=== PATIENT | female | born 1975 | race Caucasian/White ===

== ENCOUNTER → 2018-03-04 | Outpatient (CLI) | payer BC | LOC: MC.RAD 10:40 | DX: Z12.31 Encounter for screening mammogram for malignant neoplasm of breast (principal) ==

== ENCOUNTER 2020-06-09 03:48 | Emergency (ER) | payer BC ==
[~2020-06-09] VITALS: Ht 160 cm; Wt 104.5 kg
[2020-06-09 03:59] VITALS: BP 137/83; TEMP 97.6
[2020-06-09 04:45] LABS: BASO # 0.1 (0.0-0.2); BASO % 0.8 % (0.0-2.0); EOS # 0.1 (0.0-0.7); EOS % 0.8 % (0-4.0); GRAN # 8.2 (1.4-6.5); GRAN % 69.5 % (42.2-75.2); HEMATOCRIT 37.1 % (37.0-47.0); LYMPH # 2.4 (1.2-3.4); LYMPH % 20.4 % (20.0-51.0); MEAN CELL VOLUME 86 fl (80.0-100.0); MEAN CORPUSCULAR HEMOGLOBIN 28 pg (27.0-31.0); MEAN CORPUSCULAR HGB CONC 32 g/dl (33.0-37.0); MEAN PLATELET VOLUME 11.1 fl (7.4-10.4); MONO % 8.1 % (1.7-9.3); PLATELET COUNT 235 K/mm3 (130-400); RED BLOOD COUNT 4.34 M/mm3 (4.10-5.30); REDCELL DISTRIBUTION WIDTH-CV 13.1 % (11.5-14.5)
[2020-06-09 04:54] LABS: ALBUMIN 4.2 gm/dL (3.5-5.0); BILIRUBIN,TOTAL 0.4 mg/dL (0.0-1.0); CALCIUM 9.7 mg/dL (8.4-10.2); CREATININE, serum 0.63 (0.52-1.25); POTASSIUM 4.6 mmol/L (3.4-5.0); TOTAL PROTEIN 7.9 gm/dL (6.4-8.2)
[2020-06-09 05:40] LABS: COLLECTION METHOD CLEAN CATCH
[2020-06-09 05:51] LABS: MUCOUS Present /lpf; PH 5 (5-8); SQUAMOUS EPITHELIAL 0-2 /hpf; URINE APPEARANCE Clear; URINE BACTERIA Rare /hpf; URINE BILIRUBIN Negative (NEGATIVE); URINE BLOOD 1+ (NEGATIVE); URINE COLOR Yellow; URINE GLUCOSE Negative (NEGATIVE); URINE KETONE Negative (NEGATIVE); URINE LEUKOCYTE ESTERASE Negative (NEGATIVE); URINE NITRATE Positive (NEGATIVE); URINE PROTEIN(semi-quant) Negative (NEGATIVE); URINE RBC 0-2 /hpf; URINE UROBILINOGEN Negative (NEGATIVE)
[2020-06-09] MEDS ORDERED: ZOFRAN 4MG T4 MG/TAB PO (06:47)
[2020-06-09 08:30] VITALS: PULSE 71
[2020-06-09] MEDS ORDERED: AMOXICILLIN 8751 TAB PO (08:57)
== END 2020-06-09 08:30 | disposition home or self-care (01) ==
LOC: COL.ER 03:48
PROVIDERS: Emergency Medicine
DX: R10.11 Right upper quadrant pain (principal); R11.2 Nausea with vomiting, unspecified; K80.20 Calculus of gallbladder without cholecystitis without obstruction; R19.7 Diarrhea, unspecified; Z32.02 Encounter for pregnancy test, result negative
CPT/HCPCS: J2405; J3010; J7030

== ENCOUNTER 2020-06-18 09:03 | Day surgery (SDC) | payer BC ==
[~2020-06-18] VITALS: Ht 160 cm; Wt 104.4 kg
[~2020-06-18 09:03] MED LIST: AMOXICILLIN 8751 TAB PO; ZOFRAN 4MG T4 MG/TAB PO
[2020-06-18 09:30] VITALS: BP 132/70; PULSE 76; TEMP 99
[2020-06-18] MEDS ORDERED: AMOXICILLIN 8751 TAB PO (10:19)
[2020-06-18] MEDS ORDERED: NORCO 325 MG-51 TAB PO (13:11)
[2020-06-18 14:15] VITALS: BP 114/53; PULSE 63; TEMP 97.6
[2020-06-18 14:30] VITALS: BP 111/53; PULSE 62
[2020-06-18 14:45] VITALS: BP 117/60; PULSE 65
[2020-06-18 15:00] VITALS: BP 115/62; PULSE 63
[2020-06-18 15:30] VITALS: BP 124/61; PULSE 62
== END 2020-06-18 16:00 | disposition home or self-care (01) ==
LOC: SDCO 09:03
DX: K80.10 Calculus of gallbladder with chronic cholecystitis without obstruction (principal); Z79.899 Other long term (current) drug therapy; Z86.718 Personal history of other venous thrombosis and embolism; R01.1 Cardiac murmur, unspecified; R06.83 Snoring
CPT/HCPCS: J2250; J2704; J3010; J7120

== ENCOUNTER → 2021-01-05 | Outpatient (CLI) | payer BC ==
[~2021-01-05] MED LIST changes: +NORCO 325 MG-51 TAB PO
== END ==
LOC: MC.RAD 08:12
DX: Z12.31 Encounter for screening mammogram for malignant neoplasm of breast (principal)

== ENCOUNTER → 2022-04-10 | Outpatient (CLI) | payer BC | LOC: COL.RAD 04-06 13:00 | DX: K76.0 Fatty (change of) liver, not elsewhere classified (principal) | CPT/HCPCS: Q9967 ==

== ENCOUNTER → 2023-01-15 | Outpatient (CLI) | payer BC | LOC: COL.RAD 12:47 | DX: D25.9 Leiomyoma of uterus, unspecified (principal); N95.0 Postmenopausal bleeding ==